=== PATIENT | female | born 1965 | race Caucasian/White ===

== ENCOUNTER 2016-08-17 10:42 | Emergency (ER) | payer MEDICAID ==
[~2016-08-17] VITALS: Ht 157.5 cm; Wt 66.7 kg
[2016-08-17 10:50] VITALS: BP_SYST 126
[2016-08-17 13:15] VITALS: BP_SYST 118
== END 2016-08-17 13:15 | disposition home or self-care (01) ==
LOC: SED 10:42
DX: H00.016 Hordeolum externum left eye, unspecified eyelid (principal)
CPT/HCPCS: 99282